=== PATIENT | male | born 1995 ===

== ENCOUNTER 2017-01-28 09:00 | Day surgery (SDC) | payer OTHER ==
[2017-01-28 09:35] VITALS: BMI 20.9
[2017-01-28] MEDS ORDERED: Propofol 10 mg/ml Inj (20 ML) ONE ×2 (10:16→11:08)
[2017-01-28] MEDS ORDERED: Phenylephrine 10 mg/ml Inj ONE (10:19)
[2017-01-28] MEDS ORDERED: Lactated Ringer's 500 ML IV ONE (11:33)
[2017-01-28 12:10] VITALS: TEMP 97.6
[2017-01-28 12:11] VITALS: O2SAT 100
[2017-01-28 12:46] VITALS: BP 100/58; PULSE 60; RESP 14
== END 2017-01-28 12:35 | disposition home or self-care (01) ==
LOC: C.ENDO 09:00
PROVIDERS: ATTEND Internal Medicine Gastroenterology
DX: K31.7 Polyp of stomach and duodenum (principal); K51.80 Other ulcerative colitis without complications; K29.50 Unspecified chronic gastritis without bleeding; K44.9 Diaphragmatic hernia without obstruction or gangrene; K31.89 Other diseases of stomach and duodenum; K64.8 Other hemorrhoids
CPT/HCPCS: 43239; 45380; 88305; 88313; 88342; J2001; J2370; J2704; J3010; J7120